=== PATIENT | male | born 1995 | race Caucasian/White ===

== ENCOUNTER 2019-05-08 03:03 | Emergency (ER) | payer SELFPAY ==
[~2019-05-08] VITALS: Ht 167.6 cm; Wt 83.0 kg
[2019-05-08] MEDS ORDERED: IPRATROPIUM BROMIDE (0.02%) 0.5MG/2.5ML NEB HHN STA (03:28)
[2019-05-08] MEDS ORDERED: ALBUTEROL (0.083%) 2.5MG/3ML NEB HHN STA (03:28)
[2019-05-08] MEDS ORDERED: PREDNISONE 20MG TABLET PO STA (03:28)
[2019-05-08 07:08] VITALS: BP 100/58
== END 2019-05-08 07:09 | disposition home or self-care (01) ==
LOC: ER 03:03
DX: J45.909 Unspecified asthma, uncomplicated (principal); Z98.890 Other specified postprocedural states
CPT/HCPCS: 94644; 99285; J7512; J7611; Z7610

== ENCOUNTER 2021-02-23 20:34 | Emergency (ER) | payer SELFPAY ==
[~2021-02-23] VITALS: Ht 167.6 cm; Wt 87.0 kg
[2021-02-23] MEDS ORDERED: KETOROLAC 30MG/ML VIAL IM STA (22:28)
[2021-02-23] MEDS ORDERED: ONDANSETRON HCL 4MG/2ML INJ IM STA (22:28)
[2021-02-23 22:54] LABS: BASOPHILS % 0.3 % (0.0-2.0); EOSINOPHILS % 0.6 % (0.0-5.0); HEMATOCRIT. 43.8 % (42.0-52.0); HEMOGLOBIN. 15.1 g/dL (14.0-18.0); LYMPHOCYTES % 14.3 % (20.0-50.0); MEAN CORPUSCULAR HEMOGLOBIN 27.6 pg (28.0-32.0); MEAN CORPUSCULAR VOLUME 80.1 fL (80.0-94.0); MONOCYTES % 3.2 % (2.0-8.0); NEUTROPHILS % 81.6 % (40.0-76.0); PLATELET 257 x1000/uL (130-400); RED BLOOD CELL COUNT 5.47 mill/uL (4.7-6.1); RED CELL DISTRIBUTION WIDTH 14.2 % (11.6-14.6)
[2021-02-23 22:55] LABS: CHLORIDE 106 mEq/L (98-107)
[2021-02-23 23:44] LABS: CLARITY URINE CLEAR (CLEAR); COLOR URINE YELLOW (YELLOW); KETONES URINE TRACE (NEGATIVE); LEUKOCYTE ESTERASE URINE NEGATIVE (NEGATIVE); NITRITE URINE NEGATIVE (NEGATIVE); OCCULT BLOOD URINE NEGATIVE (NEGATIVE); PH URINE 5.5 (4.5-8.0); PROTEIN URINE NEGATIVE (NEGATIVE); SPECIFIC GRAVITY URINE 1.032 (1.005-1.030)
[2021-02-24] MEDS ORDERED: FAMOTIDINE 20MG TABLET PO ONE (00:15)
[2021-02-24] MEDS ORDERED: FAMO-135 MT (00:25)
[2021-02-24] MEDS ORDERED: ACET-2708 MT (00:25)
[2021-02-24 00:49] VITALS: BP 122/74
[2021-02-25] MEDS ORDERED: ONDA8TAB13 MT (17:53)
== END 2021-02-24 00:51 | disposition home or self-care (01) ==
LOC: ER 21:06
DX: R10.13 Epigastric pain (principal); R11.2 Nausea with vomiting, unspecified; J45.909 Unspecified asthma, uncomplicated
CPT/HCPCS: 36415; 76705; 80053; 81003; 83690; 85025; 96372; 99284; J1885; J2405

== ENCOUNTER 2021-02-25 12:42 | Emergency (ER) | payer SELFPAY ==
[~2021-02-25] VITALS: Ht 167.6 cm; Wt 88.0 kg
[~2021-02-25 12:42] MED LIST: ACET-2708 MT; FAMO-135 MT
[2021-02-25 12:47] VITALS: BP 127/81
[2021-02-25] MEDS ORDERED: ONDANSETRON HCL 4MG/2ML INJ IV STA (16:47)
[2021-02-25] MEDS ORDERED: SODIUM CHLORIDE 0.9% 1,000 ML IV ONE (17:00)
[2021-02-25 17:24] LABS: BASOPHILS % 0.4 % (0.0-2.0); EOSINOPHILS % 2.4 % (0.0-5.0); HEMATOCRIT. 44.4 % (42.0-52.0); HEMOGLOBIN. 15.4 g/dL (14.0-18.0); LYMPHOCYTES % 25.7 % (20.0-50.0); MEAN CORPUSCULAR HEMOGLOBIN 27.8 pg (28.0-32.0); MEAN CORPUSCULAR VOLUME 80.2 fL (80.0-94.0); MEAN PLATELET VOLUME 8.1 fl (7.4-10.4); MONOCYTES % 4.8 % (2.0-8.0); NEUTROPHILS % 66.7 % (40.0-76.0); PLATELET 242 x1000/uL (130-400); RED BLOOD CELL COUNT 5.53 mill/uL (4.7-6.1); RED CELL DISTRIBUTION WIDTH 13.7 % (11.6-14.6)
[2021-02-25 17:31] LABS: CHLORIDE 106 mEq/L (98-107)
[2021-02-25] MEDS ORDERED: ONDA8TAB13 MT (17:53)
== END 2021-02-25 18:49 | disposition home or self-care (01) ==
LOC: ER 12:42
DX: K29.00 Acute gastritis without bleeding (principal)
CPT/HCPCS: 36415; 80053; 83690; 85025; 96361; 96374; 99283; J2405; J7030